=== PATIENT | male | born 1985 | race Two or more races ===

== ENCOUNTER 2016-11-23 08:40 | Emergency (ER) | payer OTHER ==
--- NOTE | 2016-11-23 09:32 | ER Document Report ---
[id number] INJURY Notes: The patient is a 31-year-old male, past medical history LASIX eye surgery, HTN, presents for a forehead wound recheck and a small amount of swelling in his right inner eyelid. He had stitches placed 3 days ago after a buckle from his truck hit his forehead. No redness, drainage or fevers. Today, he woke up and noticed swelling of his right medial upper eyelid. Denies blurry vision ( despite nursing note), eye injury, fevers, nausea, vomiting or headache. TRAVEL OUTSIDE OF THE [place] IN LAST 30 DAYS: No - Related Data Allergies/Adverse Reactions: No Known Allergies Allergy (Unverified 11/23/16 08:47) Past Medical History - General Information source: Patient - Social History Smoking Status: Never Smoker Chew tobacco use (# tins/day): No Frequency of alcohol use: None Drug Abuse: None Family History: Reviewed & Not Pertinent Patient has suicidal ideation: No Patient has homicidal ideation: No Renal/ Medical History: Denies: Hx Peritoneal Dialysis Review of Systems - Review of Systems Notes: REVIEW OF SYSTEMS: CONSTITUTIONAL: -fevers, -chills EENT: +right eyelid swelling, -eye pain, -difficulty swallowing, -nasal congestion CARDIOVASCULAR: -chest pain, -syncope. RESPIRATORY: -cough, -SOB GASTROINTESTINAL: -abdominal pain, -nausea, -vomiting, -diarrhea GENITOURINARY: -dysuria, -hematuria MUSCULOSKELETAL: -back pain, -neck pain SKIN: +forehead lac, -rash or skin lesions. HEMATOLOGIC: -easy bruising or bleeding. LYMPHATIC: -swollen, enlarged glands. NEUROLOGICAL: -altered mental status or loss of consciousness, -headache, - neurologic symptoms PSYCHIATRIC: -anxiety, -depression. ALL OTHER SYSTEMS REVIEWED AND NEGATIVE. Physical Exam - Vital signs Vitals: Temp Pulse Resp BP Pulse Ox 98.0 F 92 18 138/92 H 99 11/23/16 08:45 11/23/16 08:45 11/23/16 08:45 11/23/16 08:45 11/23/16 08:45 - Notes Notes: PHYSICAL EXAMINATION: GENERAL: Well-appearing, well-nourished and in no acute distress. HEAD: Atraumatic, normocephalic. EYES: Hordeolum in right upper medial eyelid. Pupils equal round and reactive to light, extraocular movements intact, sclera anicteric, conjunctiva are normal. ENT: nares patent, oropharynx clear without exudates. Moist mucous membranes. NECK: Normal range of motion, supple without lymphadenopathy LUNGS: Breath sounds clear to auscultation bilaterally and equal. No wheezes rales or rhonchi. HEART: Regular rate and rhythm without murmurs ABDOMEN: Soft, nontender, normoactive bowel sounds. No guarding, no rebound. No masses appreciated. EXTREMITIES: Normal range of motion, no pitting or edema. No cyanosis. NEUROLOGICAL: Cranial nerves grossly intact. Normal speech, normal gait. Normal sensory, motor, and reflex exams. PSYCH: Normal mood, normal affect. SKIN: 3 cm forehead laceration with sutures and Steri-strips, no redness or wound discharge. Warm, Dry, normal turgor, no rashes or lesions noted. Course - Re-evaluation Re-evalutation: Patient denies any current blurry vision. Right visual acuity is 20/25. We'll treat with warm compresses and erythromycin as needed. Stitches are not ready to come out at this time due to only 3 days. Told him to return in 2 days to have his wound rechecked and see if the stitches need removal. No signs of infection. - Vital Signs Vital signs: Temp Pulse Resp BP Pulse Ox 98.3 F 90 18 140/90 H 100 11/23/16 09:41 11/23/16 09:41 11/23/16 09:41 11/23/16 09:41 11/23/16 09:41 Discharge - Discharge Clinical Impression: Hordeolum externum of right upper eyelid, Encounter for wound re-check Condition: Good Disposition: HOME, SELF-CARE Additional Instructions: Return in 2 days on Saturday to have your wound rechecked and to see if the sutures are ready to be removed. Sty Your examination reveals that you have a sty. This is an infection of a hair follicle in the eyelid. As the infection progresses, it forms an abscess along the edge of the eyelid. A sty causes a lot of swelling and tenderness. As the body fights the infection, a lump forms. The knot slowly goes away over a couple of weeks. Treatment includes applying warm compresses to the eye for 10 to 15 minutes every two or three hours. Usually, the infection will drain from the abscess spontaneously, however, some sties require surgical drainage. You may be given antibiotic eye drops to prevent the infection from spreading to the surface of the eye. If the doctor is concerned that the infection is severe, you may be given antibiotics by mouth or shot. Call the doctor at once if vision decreases, if swelling becomes severe, or if eye pain becomes severe. See the doctor for follow-up should you fail to improve as expected. Prescriptions: Erythromycin Base [E-Mycin 0.5% Oph Ointment 3.5 gm] 1 applic OD QID #1 tube
[2016-11-23 09:53] VITALS: BP 140/90
== END 2016-11-23 09:51 | disposition home or self-care (01) ==
LOC: ER 08:40
DX: S01.81XD Laceration without foreign body of other part of head, subsequent encounter (principal); W22.8XXD Striking against or struck by other objects, subsequent encounter; H00.011 Hordeolum externum right upper eyelid; I10 Essential (primary) hypertension; Z98.890 Other specified postprocedural states
CPT/HCPCS: 99283